=== PATIENT | male | born 1945 | race Caucasian/White ===

== ENCOUNTER 2019-07-09 11:20 | Emergency (ER) | payer MEDICARE, MEDICAID ==
[~2019-07-09] VITALS: Ht 172.7 cm; Wt 100.0 kg
[~2019-07-09 11:20] MED LIST: AMLO5TAB PO; CITA10TA9 PO; CYCL-1 PO; DEXL60CA3 PO; DONE-46 PO; LISI40TA4 PO; LORA10TA7 PO; METF-438 PO; MULT-342 PO; TRAM50TA2 PO; VALS320T2 PO
[2019-07-09 13:31] VITALS: BP 139/89
== END 2019-07-09 13:32 | disposition home or self-care (01) ==
LOC: ER 11:21
DX: H61.23 Impacted cerumen, bilateral (principal); Z88.5 Allergy status to narcotic agent; Z79.899 Other long term (current) drug therapy
CPT/HCPCS: 69209; 99283

== ENCOUNTER 2021-10-25 14:26 | Emergency (ER) | payer BC, MEDICAID ==
[~2021-10-25] VITALS: Ht 170.2 cm; Wt 100.0 kg
[~2021-10-25 14:26] MED LIST changes: -CITA10TA9 PO; +CITA10TA93 PO; +LISI40TA13 PO; -LISI40TA4 PO
[2021-10-25] MEDS: HYDROcodone/acetaminophen 5mg/325mg tablet PO ONE (14:30)
[2021-10-25 14:33] VITALS: BP 99/51
== END 2021-10-25 14:50 ==
LOC: ER 14:26
DX: G89.29 Other chronic pain (principal); M25.552 Pain in left hip; R53.1 Weakness; R62.7 Adult failure to thrive; Z98.890 Other specified postprocedural states; Z88.5 Allergy status to narcotic agent; Z79.899 Other long term (current) drug therapy
CPT/HCPCS: 99284

== ENCOUNTER 2021-12-06 21:57 | Inpatient (IN) | payer BC, MEDICAID ==
[~2021-12-06] VITALS: Ht 170.2 cm; Wt 100.0 kg
--- NOTE | 2021-12-06 22:16 | NUR ---
Nguyễn JAMES notifed by Codey UMAÑA of critical potassium level
[2021-12-06 22:36] LABS: BASOPHILS # (AUTO) 0.1 X10'3 (0-0.2); BASOPHILS % (AUTO) 0.5 % (0-1); EOSINOPHILS # (AUTO) 0.5 X10'3 (0-0.9); HEMATOCRIT 25.9 % (42.0-52.0); HEMOGLOBIN 8.2 g/dl (14.0-17.9); LYMPHOCYTES % (AUTO) 9.7 % (21-51); MEAN CORPUSCULAR HEMOGLOBIN 24.3 PG (27.0-31.0); MEAN CORPUSCULAR HGB CONC 31.6 g/dL (33.0-36.5); MEAN CORPUSCULAR VOLUME 76.9 FL (78-98); MEAN PLATELET VOLUME 7.8 FL (7.4-10.4); MONOCYTES % (AUTO) 9.9 % (2-12); NEUTROPHILS # (AUTO) 7.7 X10'3 (1.8-7.7); NEUTROPHILS % (AUTO) 74.9 % (42-75); PLATELET COUNT 397 X10'3 (140-440); RED BLOOD COUNT 3.38 X10'6 (4.70-6.10); RED CELL DISTRIBUTION WIDTH 22.3 % (11.5-14.5); WHITE BLOOD COUNT 10.3 X10'3 (4.5-11.0)
[2021-12-06 22:39] LABS: D-DIMER 0.83 MG/L FEU (0-0.50)
[2021-12-06 22:45] LABS: ALANINE AMINOTRANSFERASE 13 U/L (12-78); ALBUMIN 2.7 G/DL (3.4-5.0); ALBUMIN/GLOBULIN RATIO 0.5 (1.1-1.5); ALKALINE PHOSPHATASE 51 IU/L (46-116); ANION GAP 11 (8-16); ASPARTATE AMINO TRANSFERASE 11 U/L (10-37); BILIRUBIN,TOTAL 0.6 MG/DL (0.1-1.0); BLOOD UREA NITROGEN 108 MG/DL (7-18); BUN/CREATININE RATIO 13.8 (5.4-32.0); CALCIUM 9.9 MG/DL (8.5-10.1); CHLORIDE 104 MMOL/L (99-107); CREATININE 7.81 MG/DL (0.60-1.10); GLUCOSE 68 MG/DL (70-104); SODIUM 138 MMOL/L (135-145); TOTAL CARBON DIOXIDE 23.1 MMOL/L (24-32); TOTAL PROTEIN 7.7 G/DL (6.4-8.2); eGFR 7 ML/MIN
[2021-12-06 22:49] LABS: POTASSIUM 7.1 MMOL/L (3.5-5.1)
[2021-12-06] MEDS ORDERED: normal saline 1000ml 1,000 ML IV ONE ×2 (23:00)
[2021-12-06] MEDS ORDERED: normal saline 1000ML IV soln IVB ONE ×2 (23:00)
--- NOTE | 2021-12-06 23:16 | NUR ---
Pt given 250 mls of orange juice per verbal OK from Nguyễn JAMES for blood glucose of 68.
[2021-12-06 23:37] LABS: CREATINE KINASE 27 U/L (39-308); MAGNESIUM 1.8 MG/DL (1.5-2.4)
[2021-12-07] VITALS (17 sets, daily range): BP systolic 90–117; BP diastolic 38–51
--- NOTE | 2021-12-07 00:29 | NUR ---
IN HOME [facility] AD LITEM: JAIME PABLO (CALL HER FIRST) [phone] [place] (SON) [phone]
[2021-12-07 00:36] LABS: ALBUMIN 2.4 G/DL (3.4-5.0); ANION GAP 11 (8-16); BLOOD UREA NITROGEN 102 MG/DL (7-18); BUN/CREATININE RATIO 13.5 (5.4-32.0); CALCIUM 9.1 MG/DL (8.5-10.1); CHLORIDE 106 MMOL/L (99-107); CREATININE 7.53 MG/DL (0.60-1.10); GLUCOSE 89 MG/DL (70-104); SODIUM 139 MMOL/L (135-145); TOTAL CARBON DIOXIDE 22.2 MMOL/L (24-32); eGFR 7 ML/MIN
[2021-12-07 00:41] LABS: POTASSIUM 7.4 MMOL/L (3.5-5.1)
--- NOTE | 2021-12-07 00:43 | NUR ---
Nguyễn JAMES notified of Potassium of 7.4. stated that he would put new orders in.
[2021-12-07 00:56] LABS: PLATELET ESTIMATE NORMAL; TOTAL CELLS COUNTED 100
[2021-12-07 00:57] LABS: ANISOCYTOSIS 3+
[2021-12-07 00:58] LABS: ELLIPTOCYTES FEW; LARGE PLATELETS FEW; POLYCHROMASIA FEW
[2021-12-07] MEDS ORDERED: dextrose 50%-water 50ml dispensing syringe IV ONE ×3 (01:20→17:20)
[2021-12-07] MEDS ORDERED: insulin regular, human U-100 3ml vial - multi-dose IV ONE (01:20)
[2021-12-07] MEDS ORDERED: albuterol 2.5 MG/3 ML nebule NEB ONE (01:30)
[2021-12-07] MEDS ORDERED: sodium bicarbonate (8.4%) 1 mEq/ml syringe IV ONE ×2 (01:35→17:20)
[2021-12-07 01:51] LABS: CLARITY,URINE CLOUDY (Clear); COLOR,URINE YELLOW (Yellow); GLUCOSE, URINE 100 mg/dl (Neg); KETONES,URINE NEGATIVE (Neg); LEUKOCYTE ESTERASE ,URINE LARGE (Neg); NITRITES, URINE NEGATIVE (Neg); OCCULT BLOOD,URINE MODERATE (Neg); PROTEIN,URINE 100 mg/dl (Neg); UROBILINOGEN,URINE 0.2 E.U/dL (0.2-1.0)
--- NOTE | 2021-12-07 01:53 | NUR ---
RT at bedside
[2021-12-07] MEDS ORDERED: insulin regular, human 10 units/0.1 ml syringe IV ONE ×2 (01:55→17:20)
[2021-12-07 02:04] LABS: UA COLLECTION TYPE NON-SPECIFIED
[2021-12-07 02:06] LABS: BACTERIA,URINE 2+ /HPF (Neg); SQUAMOUS EPITHELIAL CELL,UR FEW /LPF (FEW); WBC,URINE TNTC /HPF (0-4)
[2021-12-07] MEDS ORDERED: cefTRIAXone 1g/NS 100ml IVPB 100 ML IV ONE (02:20)
--- NOTE | 2021-12-07 02:38 | NUR ---
This RN called [facility] casualty insurance claim adjuster to ask for admission orders and to notify that Nguyễn JAMES added Rocephin to patient's orders.
[2021-12-07] MEDS ORDERED: LIDOcaine 2% 10ml TOPICAL JELLY (Urojet) TP ONE (02:45)
[2021-12-07] MEDS ORDERED: sodium bicarbonate (8.4%) inj. 150 MEQ in dextrose 5%-water 1,000 ML IV SCH (02:50)
[2021-12-07] MEDS ORDERED: PATIROMER CALCIUM SORBITEX 8.4 GM POWD.PACK PO ONE (02:55)
[2021-12-07 03:37] LABS: ALBUMIN 2.4 G/DL (3.4-5.0); BLOOD UREA NITROGEN 99 MG/DL (7-18); BUN/CREATININE RATIO 13.7 (5.4-32.0); CHLORIDE 107 MMOL/L (99-107); CREATININE 7.22 MG/DL (0.60-1.10); GLUCOSE 135 MG/DL (70-104); TOTAL CARBON DIOXIDE 25.4 MMOL/L (24-32); eGFR 7 ML/MIN
[2021-12-07 03:46] LABS: ANION GAP 6 (8-16); POTASSIUM 5.9 MMOL/L (3.5-5.1); SODIUM 138 MMOL/L (135-145)
--- NOTE | 2021-12-07 06:30 | NUR ---
first contact with pt, found supine in bed, asleep. vss, corrales cath in place. awaiting bed assignment. no distress.
--- NOTE | 2021-12-07 07:02 | NUR ---
telephone report to elma ocampo.
[2021-12-07] MEDS: sodium chloride 0.45% 1,000 ML IV SCH ×2 (07:45→18:56)
[2021-12-07] MEDS: heparin, porcine 5000 units/ml vial SQ SCH ×2 (09:05→20:46)
[2021-12-07 14:56] LABS: URINE AMPHETAMINE SCREEN NEGATIVE (Neg); URINE BARBITUATE SCREEN NEGATIVE (Neg); URINE BENZODIAZEPINES SCREEN NEGATIVE (Neg); URINE COCAINE SCREEN NEGATIVE (Neg); URINE METHADONE SCREEN NEGATIVE (Neg); URINE OPIATE SCREEN NEGATIVE (Neg)
[2021-12-07 15:05] LABS: URINE CANNABINOID SCREEN NEGATIVE (Neg); URINE PHENCYCLIDINE SCREEN NEGATIVE (Neg)
[2021-12-07] MEDS ORDERED: ACET-3080 PO (15:28)
[2021-12-07] MEDS ORDERED: LANTUS SQ (15:28)
[2021-12-07] MEDS ORDERED: IPRA3AMP31 IH (15:28)
[2021-12-07] MEDS ORDERED: GABA300C PO (15:28)
[2021-12-07] MEDS ORDERED: INSU100V43 SQ (15:28)
[2021-12-07] MEDS ORDERED: AMLO10TA PO (15:28)
[2021-12-07] MEDS ORDERED: PREG100C PO (15:28)
[2021-12-07] MEDS ORDERED: OMEP20CA16 PO (15:28)
[2021-12-07] MEDS ORDERED: DONE10TA7 PO (15:28)
[2021-12-07] MEDS ORDERED: FLO0.4C PO (15:28)
[2021-12-07] MEDS ORDERED: ASPI-101 PO (15:28)
[2021-12-07] MEDS ORDERED: GLIM4TAB7 PO (15:28)
[2021-12-07] MEDS ORDERED: INSU100I71 SQ (15:28)
[2021-12-07] MEDS ORDERED: OXYB5TAB16 PO (15:28)
[2021-12-07] MEDS ORDERED: ATOR40TA PO (15:28)
[2021-12-07] MEDS ORDERED: DOCU100C40 PO (15:28)
[2021-12-07] MEDS ORDERED: LIDO700A32 TOP (15:28)
[2021-12-07] MEDS ORDERED: FERR325T28 PO (15:28)
[2021-12-07] MEDS ORDERED: LOP25T PO (15:28)
[2021-12-07] MEDS ORDERED: SITA100T15 PO (15:28)
[2021-12-07] MEDS ORDERED: DAPA10TA PO (15:28)
[2021-12-07] MEDS ORDERED: LOSA100T57 PO (15:28)
[2021-12-07] MEDS ORDERED: HYDR-3965 PO (15:28)
[2021-12-07] MEDS ORDERED: TRAZ150T78 PO (15:28)
[2021-12-07] MEDS ORDERED: INSU100I8 SQ (15:28)
[2021-12-07] MEDS ORDERED: ALOG6.25 PO (15:28)
[2021-12-07] MEDS ORDERED: FENO145T25 PO (15:29)
[2021-12-07] MEDS ORDERED: NORepinephrine 8mg/ 250ml NS 250 ML IV ONE (16:01)
[2021-12-07 16:41] LABS: ALBUMIN 2.3 G/DL (3.4-5.0); ANION GAP 7 (8-16); BLOOD UREA NITROGEN 81 MG/DL (7-18); BUN/CREATININE RATIO 12.9 (5.4-32.0); CALCIUM 8.9 MG/DL (8.5-10.1); CHLORIDE 107 MMOL/L (99-107); CREATININE 6.29 MG/DL (0.60-1.10); GLUCOSE 94 MG/DL (70-104); MAGNESIUM 1.5 MG/DL (1.5-2.4); SODIUM 139 MMOL/L (135-145); TOTAL CARBON DIOXIDE 24.9 MMOL/L (24-32); eGFR 9 ML/MIN
--- NOTE | 2021-12-07 18:07 | NUR ---
pt having difficulty eating by him self. hand very shaky will need help with feeding. Food cut up for patient and is trying very hard to eat. RN notified
[2021-12-07] MEDS: NORepinephrine 8mg/ 250ml NS 250 ML IV SCH (19:08)
[2021-12-07] MEDS ORDERED: sodium bicarbonate 650mg tablet PO SCH (20:00)
[2021-12-07] MEDS: SODIUM ZIRCONIUM CYCLOSILICATE 10 GM POWD.PACK PO SCH (20:46)
[2021-12-07] MEDS: tamsulosin 0.4mg capsule PO SCH (20:46)
[2021-12-08] VITALS (18 sets, daily range): BP systolic 84–137; BP diastolic 36–69
[2021-12-08] MEDS: sodium chloride 0.45% 1,000 ML IV SCH ×3 (00:36→18:38)
[2021-12-08 03:13] LABS: BASOPHILS # (AUTO) 0.1 X10'3 (0-0.2); BASOPHILS % (AUTO) 0.8 % (0-1); EOSINOPHILS # (AUTO) 0.5 X10'3 (0-0.9); EOSINOPHILS % (AUTO) 7.2 % (0-6); HEMATOCRIT 23.6 % (42.0-52.0); HEMOGLOBIN 7.5 g/dl (14.0-17.9); LYMPHOCYTES % (AUTO) 13.8 % (21-51); MEAN CORPUSCULAR HEMOGLOBIN 24.7 PG (27.0-31.0); MEAN CORPUSCULAR HGB CONC 31.8 g/dL (33.0-36.5); MEAN CORPUSCULAR VOLUME 77.8 FL (78-98); MEAN PLATELET VOLUME 7.7 FL (7.4-10.4); MONOCYTES # (AUTO) 0.5 X10'3 (0-0.9); MONOCYTES % (AUTO) 7.2 % (2-12); NEUTROPHILS # (AUTO) 5.4 X10'3 (1.8-7.7); PLATELET COUNT 313 X10'3 (140-440); RED BLOOD COUNT 3.04 X10'6 (4.70-6.10); RED CELL DISTRIBUTION WIDTH 22.4 % (11.5-14.5); WHITE BLOOD COUNT 7.6 X10'3 (4.5-11.0)
[2021-12-08 03:20] LABS: APTT 30 SECONDS (22-32)
[2021-12-08 03:24] LABS: ALBUMIN 2.2 G/DL (3.4-5.0); ANION GAP 6 (8-16); BLOOD UREA NITROGEN 73 MG/DL (7-18); BUN/CREATININE RATIO 12.5 (5.4-32.0); CALCIUM 8.8 MG/DL (8.5-10.1); CHLORIDE 108 MMOL/L (99-107); CREATININE 5.83 MG/DL (0.60-1.10); GLUCOSE 89 MG/DL (70-104); POTASSIUM 5.4 MMOL/L (3.5-5.1); SODIUM 141 MMOL/L (135-145); TOTAL CARBON DIOXIDE 26.6 MMOL/L (24-32); eGFR 10 ML/MIN
[2021-12-08 04:31] LABS: ANISOCYTOSIS 3+; ELLIPTOCYTES FEW; PLATELET ESTIMATE NORMAL
[2021-12-08] MEDS: normal saline 1000ml 1,000 ML IV SCH ×3 (05:07→06:35)
[2021-12-08] MEDS: NORepinephrine 8mg/ 250ml NS 250 ML IV SCH (05:50)
[2021-12-08] MEDS ORDERED: DEXTROSE 15 GM of carb/4 tabs (each vial/BOTTLE has 4 tablets) PO PRN ×4 (07:45→11:55)
[2021-12-08] MEDS ORDERED: dextrose 50%-water 50ml dispensing syringe IV PRN ×4 (07:45→11:55)
[2021-12-08] MEDS: cefTRIAXone 1g/NS 100ml IVPB IV SCH (07:56)
[2021-12-08] MEDS: SODIUM ZIRCONIUM CYCLOSILICATE 10 GM POWD.PACK PO SCH ×2 (07:56→12:20)
[2021-12-08] MEDS: heparin, porcine 5000 units/ml vial SQ SCH ×2 (07:57→20:00)
[2021-12-08] MEDS ORDERED: ipratropium/albuterol 3ml nebule IH PRN (11:10)
[2021-12-08] MEDS ORDERED: oxybutynin 5mg tablet PO PRN (11:10)
[2021-12-08] MEDS ORDERED: fluconazole 150mg tablet PO ONE (11:45)
[2021-12-08] MEDS ORDERED: glucagon, human recombinant 1mg kit SUBCUT PRN (11:55)
[2021-12-08] MEDS ORDERED: MESSAGE TO PHARMACY PO ONE (11:55)
--- NOTE | 2021-12-08 12:09 | NUR ---
Calorie Count Consult: RD d/w RN at rounds supposed to be DM Consult given pt A1C 8.5% and hx T2DM NOT calorie count consult; dietary notified. Pt PO ~70% initial renal diet meals w/ 100% breakfast this AM per RN though having persistent low AM Glu 54mg/dl this AM s/p D50 per EMR. Noted night RN charted pt difficulty eating requires assistance/chopping foods given shaking hands. Dietary notified to chop meats given good PO trends. Given pt persistent low AM Glu w/ adequate meal intake not on carb controlled restriction DM ed deferred at this time. Addendum: 12/08/21 at [address] Amended: Links added.
[2021-12-08] MEDS: donepezil 5mg tablet PO SCH (12:19)
[2021-12-08 15:56] LABS: ALBUMIN 2.1 G/DL (3.4-5.0); ANION GAP 9 (8-16); BLOOD UREA NITROGEN 61 MG/DL (7-18); BUN/CREATININE RATIO 12.1 (5.4-32.0); CALCIUM 8.7 MG/DL (8.5-10.1); CHLORIDE 108 MMOL/L (99-107); CREATININE 5.05 MG/DL (0.60-1.10); GLUCOSE 117 MG/DL (70-104); MAGNESIUM 1.4 MG/DL (1.5-2.4); SODIUM 141 MMOL/L (135-145); TOTAL CARBON DIOXIDE 24.3 MMOL/L (24-32); eGFR 11 ML/MIN
[2021-12-08 15:57] LABS: POTASSIUM 4.6 MMOL/L (3.5-5.1)
--- NOTE | 2021-12-08 17:34 | NUR ---
Report called to receiving RN, all questions/concerns answered prior to transfer. All pt belongings accounted for prior to transfer.
--- NOTE | 2021-12-08 17:59 | NUR ---
Patient just got here from CICU not too long ago. Patient alert, oriented x 4. Patient has a corrales catheter that draining red/bloody urine. Per ICU nurse, the doctor already aware of the hematuria.
[2021-12-08] MEDS: docusate sod 100mg capsule PO SCH (20:35)
[2021-12-08] MEDS: tamsulosin 0.4mg capsule PO SCH (20:36)
[2021-12-08] MEDS: traZODone 150mg tablet PO SCH (20:36)
[2021-12-08] MEDS: metoprolol tartrate 12.5mg (1/2 tablet) PO SCH (20:37)
[2021-12-08] MEDS: insulin glargine (Lantus) pen - multi-dose SQ SCH (21:00)
--- NOTE | 2021-12-08 21:10 | NUR ---
Pt not covered for blood sugar of 206 as he received a regular/renal diet, and am blood glucose 54. Addendum: 12/08/21 at 2113 by Tracey Oneill RN Amended: Links added.
--- NOTE | 2021-12-08 21:30 | NUR ---
Pt with hematuria in f/c, heparin held at this time will pass on to aubrey barragan nurse taking pt. Addendum: 12/09/21 at 0332 by Tracey Oneill RN Amended: Links added.
--- NOTE | 2021-12-08 22:08 | NUR ---
Report given to laurel Liu RN. Addendum: 12/08/21 at 2251 by Tracey Oneill RN Amended: Links added.
--- NOTE | 2021-12-08 22:10 | NUR ---
Patient in room ORTHO 4009. I have received report from MUKESH UMAÑA and had the opportunity to ask questions and assume patient care.
[2021-12-09] MEDS: sodium chloride 0.45% 1,000 ML IV SCH ×3 (00:46→15:45)
[2021-12-09] MEDS: acetaminophen 325mg tablet PO PRN ×2 (00:46→11:50)
[2021-12-09 06:00] VITALS: BP 125/49
--- NOTE | 2021-12-09 06:40 | NUR ---
Problems reprioritized. Patient report given, questions answered & plan of care reviewed with LONA UMAÑA.
--- NOTE | 2021-12-09 06:40 | NUR ---
PATIENT HAVING CHEERY URINE AND NOT SURE IF PATIENT IS TAGING ON THE FC.
[2021-12-09] MEDS ORDERED: gabapentin 300mg capsule PO SCH (08:00)
[2021-12-09] MEDS ORDERED: pantoprazole 40mg Tablet.DR PO SCH (08:00)
[2021-12-09] MEDS: heparin, porcine 5000 units/ml vial SQ SCH (08:00)
[2021-12-09] MEDS ORDERED: tamsulosin 0.4mg capsule PO SCH (08:00)
[2021-12-09] MEDS ORDERED: aspirin 325mg tablet PO SCH (08:00)
[2021-12-09] MEDS: fenofibrate 145mg tablet PO SCH (08:45)
[2021-12-09] MEDS: cefTRIAXone 1g/NS 100ml IVPB IV SCH (08:45)
[2021-12-09] MEDS: amLODIPine 5mg tablet PO SCH (08:46)
[2021-12-09] MEDS: docusate sod 100mg capsule PO SCH ×2 (08:46→20:52)
[2021-12-09] MEDS: donepezil 5mg tablet PO SCH (08:46)
[2021-12-09] MEDS: ferrous sulfate 325mg tablet PO SCH (08:46)
[2021-12-09] MEDS: metoprolol tartrate 12.5mg (1/2 tablet) PO SCH ×2 (08:47→20:52)
[2021-12-09] MEDS: atorvastatin 20mg tablet PO SCH (08:50)
[2021-12-09] MEDS: pantoprazole 40mg Tablet.DR PO SCH (08:50)
[2021-12-09] MEDS: insulin Lispro (HumaLOG) vial - multi-dose SQ SCH ×2 (09:41→15:30)
[2021-12-09 10:00] VITALS: BP 117/47
[2021-12-09] MEDS ORDERED: fluconazole 100mg tablet PO ONE (10:40)
[2021-12-09 12:27] LABS: BASOPHILS # (AUTO) 0.1 X10'3 (0-0.2); BASOPHILS % (AUTO) 0.4 % (0-1); EOSINOPHILS # (AUTO) 0.4 X10'3 (0-0.9); HEMATOCRIT 30.6 % (42.0-52.0); HEMOGLOBIN 9.4 g/dl (14.0-17.9); LYMPHOCYTES # (AUTO) 0.6 X10'3 (1.1-4.8); LYMPHOCYTES % (AUTO) 3.3 % (21-51); MEAN CORPUSCULAR HEMOGLOBIN 23.7 PG (27.0-31.0); MEAN CORPUSCULAR HGB CONC 30.6 g/dL (33.0-36.5); MEAN CORPUSCULAR VOLUME 77.3 FL (78-98); MEAN PLATELET VOLUME 7.9 FL (7.4-10.4); MONOCYTES # (AUTO) 0.9 X10'3 (0-0.9); MONOCYTES % (AUTO) 4.9 % (2-12); NEUTROPHILS # (AUTO) 16.6 X10'3 (1.8-7.7); NEUTROPHILS % (AUTO) 89.4 % (42-75); PLATELET COUNT 361 X10'3 (140-440); RED BLOOD COUNT 3.96 X10'6 (4.70-6.10); RED CELL DISTRIBUTION WIDTH 22.6 % (11.5-14.5); WHITE BLOOD COUNT 18.6 X10'3 (4.5-11.0)
[2021-12-09 12:50] LABS: ALANINE AMINOTRANSFERASE 36 U/L (12-78); ALBUMIN 2.8 G/DL (3.4-5.0); ALBUMIN/GLOBULIN RATIO 0.6 (1.1-1.5); ALKALINE PHOSPHATASE 69 IU/L (46-116); ANION GAP 11 (8-16); ASPARTATE AMINO TRANSFERASE 47 U/L (10-37); BILIRUBIN,TOTAL 0.3 MG/DL (0.1-1.0); BLOOD UREA NITROGEN 55 MG/DL (7-18); BUN/CREATININE RATIO 12.6 (5.4-32.0); CALCIUM 9.5 MG/DL (8.5-10.1); CHLORIDE 105 MMOL/L (99-107); CREATININE 4.37 MG/DL (0.60-1.10); GLUCOSE 150 MG/DL (70-104); POTASSIUM 4.4 MMOL/L (3.5-5.1); SODIUM 140 MMOL/L (135-145); TOTAL CARBON DIOXIDE 23.7 MMOL/L (24-32); TOTAL PROTEIN 7.8 G/DL (6.4-8.2); eGFR 13 ML/MIN
[2021-12-09] MEDS: oxybutynin 5mg tablet PO SCH ×2 (13:00→20:53)
[2021-12-09] MEDS: carbidopa/levodopa 10/100mg tab PO SCH ×2 (16:25→23:58)
[2021-12-09 18:00] VITALS: BP 107/36
--- NOTE | 2021-12-09 18:39 | NUR ---
Patient in room ORTHO 4009. I have received report from LEEROY Renee and had the opportunity to ask questions and assume patient care.
--- NOTE | 2021-12-09 18:49 | NUR ---
Problems reprioritized. Patient report given, questions answered & plan of care reviewed with Grecia UMAÑA.
[2021-12-09 20:00] VITALS: BP 106/39
[2021-12-09] MEDS: traZODone 150mg tablet PO SCH (20:53)
[2021-12-09] MEDS: tamsulosin 0.4mg capsule PO SCH (20:53)
[2021-12-09] MEDS: insulin glargine (Lantus) pen - multi-dose SQ SCH (21:00)
[2021-12-09 22:00] VITALS: BP 106/51
[2021-12-10] MEDS: sodium chloride 0.45% 1,000 ML IV SCH ×3 (01:09→16:32)
--- NOTE | 2021-12-10 03:59 | NUR ---
pt has fc that was draining bloody urine. pt was found to be leaking around fc. orders received to irrigate for clots. this was done. numerous clots flushed out. fc now draining pink urine. no more leaking around fc. pt tolerated procedure well.
[2021-12-10 06:00] VITALS: BP 99/49
[2021-12-10 06:09] LABS: BASOPHILS # (AUTO) 0.1 X10'3 (0-0.2); BASOPHILS % (AUTO) 0.7 % (0-1); EOSINOPHILS % (AUTO) 0.4 % (0-6); HEMATOCRIT 22.8 % (42.0-52.0); HEMOGLOBIN 7.3 g/dl (14.0-17.9); LYMPHOCYTES # (AUTO) 0.7 X10'3 (1.1-4.8); LYMPHOCYTES % (AUTO) 6.9 % (21-51); MEAN CORPUSCULAR HEMOGLOBIN 24.8 PG (27.0-31.0); MEAN CORPUSCULAR HGB CONC 32.1 g/dL (33.0-36.5); MEAN CORPUSCULAR VOLUME 77.4 FL (78-98); MEAN PLATELET VOLUME 7.7 FL (7.4-10.4); MONOCYTES # (AUTO) 0.6 X10'3 (0-0.9); MONOCYTES % (AUTO) 5.8 % (2-12); NEUTROPHILS # (AUTO) 8.3 X10'3 (1.8-7.7); NEUTROPHILS % (AUTO) 86.2 % (42-75); PLATELET COUNT 246 X10'3 (140-440); RED BLOOD COUNT 2.95 X10'6 (4.70-6.10); RED CELL DISTRIBUTION WIDTH 22.6 % (11.5-14.5); WHITE BLOOD COUNT 9.6 X10'3 (4.5-11.0)
[2021-12-10 06:22] LABS: ALANINE AMINOTRANSFERASE 7 U/L (12-78); ALBUMIN 2.2 G/DL (3.4-5.0); ALBUMIN/GLOBULIN RATIO 0.6 (1.1-1.5); ALKALINE PHOSPHATASE 50 IU/L (46-116); ANION GAP 15 (8-16); ASPARTATE AMINO TRANSFERASE 17 U/L (10-37); BILIRUBIN,TOTAL 0.4 MG/DL (0.1-1.0); BLOOD UREA NITROGEN 50 MG/DL (7-18); BUN/CREATININE RATIO 11.7 (5.4-32.0); CALCIUM 8.4 MG/DL (8.5-10.1); CHLORIDE 106 MMOL/L (99-107); CREATININE 4.27 MG/DL (0.60-1.10); GLUCOSE 110 MG/DL (70-104); POTASSIUM 3.7 MMOL/L (3.5-5.1); SODIUM 140 MMOL/L (135-145); TOTAL CARBON DIOXIDE 19.2 MMOL/L (24-32); TOTAL PROTEIN 6.2 G/DL (6.4-8.2); eGFR 14 ML/MIN
--- NOTE | 2021-12-10 06:45 | NUR ---
Problems reprioritized. Patient report given, questions answered & plan of care reviewed with LEEROY Sharma.
[2021-12-10] MEDS: pantoprazole 40mg Tablet.DR PO SCH (07:30)
[2021-12-10 08:00] LABS: ANISOCYTOSIS 3+; ELLIPTOCYTES FEW; HYPOCHROMASIA 1+; MICROCYTOSIS 1+; PLATELET ESTIMATE NORMAL; POLYCHROMASIA FEW; STOMATOCYTES FEW; TEAR DROP CELLS FEW
[2021-12-10] MEDS: fluconazole 100mg tablet PO SCH (08:00)
[2021-12-10] MEDS: cefTRIAXone 1g/NS 100ml IVPB IV SCH (08:56)
[2021-12-10] MEDS: fenofibrate 145mg tablet PO SCH (08:58)
[2021-12-10] MEDS: carbidopa/levodopa 10/100mg tab PO SCH ×2 (08:59→16:30)
[2021-12-10] MEDS: docusate sod 100mg capsule PO SCH ×2 (08:59→20:58)
[2021-12-10] MEDS: gabapentin 100mg capsule PO SCH (08:59)
[2021-12-10] MEDS: oxybutynin 5mg tablet PO SCH ×3 (08:59→20:57)
[2021-12-10] MEDS: amLODIPine 5mg tablet PO SCH (08:59)
[2021-12-10] MEDS: atorvastatin 20mg tablet PO SCH (09:00)
[2021-12-10] MEDS: ferrous sulfate 325mg tablet PO SCH (09:00)
[2021-12-10] MEDS: donepezil 5mg tablet PO SCH (09:00)
[2021-12-10] MEDS: linagliptin 5mg tablet PO SCH (09:01)
[2021-12-10] MEDS: acetaminophen 325mg tablet PO PRN (09:06)
[2021-12-10] MEDS: metoprolol tartrate 12.5mg (1/2 tablet) PO SCH ×2 (09:06→20:56)
[2021-12-10 10:00] VITALS: BP 97/42
--- NOTE | 2021-12-10 12:55 | NUR ---
Called pharmacy. Pharmacist not available. Asked for return phone call.
[2021-12-10] MEDS ORDERED: fluconazole 100mg tablet PO ONE (13:15)
[2021-12-10] MEDS: HYDROcodone/acetaminophen 5mg/325mg tablet PO PRN ×2 (13:18→20:57)
[2021-12-10 18:00] VITALS: BP 107/45
--- NOTE | 2021-12-10 18:30 | NUR ---
Gave report to May UMAÑA.
[2021-12-10] MEDS: tamsulosin 0.4mg capsule PO SCH (20:57)
[2021-12-10] MEDS: traZODone 150mg tablet PO SCH (20:58)
[2021-12-10] MEDS: insulin glargine (Lantus) pen - multi-dose SQ SCH (21:12)
[2021-12-10 22:00] VITALS: BP 106/46
[2021-12-11] MEDS: carbidopa/levodopa 10/100mg tab PO SCH ×3 (00:18→16:59)
[2021-12-11] MEDS: sodium chloride 0.45% 1,000 ML IV SCH ×4 (00:27→18:50)
[2021-12-11] MEDS: HYDROcodone/acetaminophen 5mg/325mg tablet PO PRN ×2 (05:14→21:04)
--- NOTE | 2021-12-11 06:32 | NUR ---
Problems reprioritized. Patient report given, questions answered & plan of care reviewed with elma Davalos.
--- NOTE | 2021-12-11 06:36 | NUR ---
Patient in room ORTHO 4011. I have received report from May UMAÑA and had the opportunity to ask questions and assume patient care.
[2021-12-11 07:04] VITALS: BP 101/49
[2021-12-11] MEDS: metoprolol tartrate 12.5mg (1/2 tablet) PO SCH ×2 (08:00→21:04)
[2021-12-11] MEDS ORDERED: fluconazole 100mg tablet PO SCH (08:00)
[2021-12-11] MEDS: amLODIPine 5mg tablet PO SCH (08:00)
[2021-12-11] MEDS: docusate sod 100mg capsule PO SCH (08:05)
[2021-12-11] MEDS: ferrous sulfate 325mg tablet PO SCH (08:06)
[2021-12-11] MEDS: donepezil 5mg tablet PO SCH (08:06)
[2021-12-11] MEDS: oxybutynin 5mg tablet PO SCH (08:06)
[2021-12-11] MEDS: pantoprazole 40mg Tablet.DR PO SCH (08:06)
[2021-12-11] MEDS: gabapentin 100mg capsule PO SCH (08:07)
[2021-12-11] MEDS: atorvastatin 20mg tablet PO SCH (08:07)
[2021-12-11] MEDS: fenofibrate 145mg tablet PO SCH (08:07)
[2021-12-11] MEDS: linagliptin 5mg tablet PO SCH (08:08)
[2021-12-11] MEDS: fluconazole 100mg tablet PO SCH (08:08)
[2021-12-11] MEDS: cefTRIAXone 1g/NS 100ml IVPB IV SCH (08:09)
[2021-12-11 10:00] VITALS: BP 115/58
[2021-12-11] MEDS: insulin Lispro (HumaLOG) vial - multi-dose SQ SCH ×3 (10:08→18:44)
--- NOTE | 2021-12-11 10:52 | NUR ---
Initial: Pt admitted w/ UTI and RADHA per EMR. Currently on Carb control/Renal/Mech soft diet w/ avg 61% x 9 meals partially meeting needs. Recommend removal of Renal diet as not currently indicated w/ only RADHA. Also recommend Glucerna TID to assist w/ meeting needs. LBM 12/09 receiving routine bowel care. Will continue to monitor. Recs: 1. Continue Carb control/Mech soft diet; remove Renal as not indicated 2. Glucerna TID; pending MD verification 3. Bowel care per rx 4. Scaled wts this admit Addendum: 12/11/21 at [address] Amended: Links added.
[2021-12-11 14:00] VITALS: BP 101/47
[2021-12-11 14:17] LABS: BASOPHILS # (AUTO) 0.1 X10'3 (0-0.2); EOSINOPHILS # (AUTO) 0.4 X10'3 (0-0.9); EOSINOPHILS % (AUTO) 6.2 % (0-6); HEMATOCRIT 23.4 % (42.0-52.0); HEMOGLOBIN 7.2 g/dl (14.0-17.9); LYMPHOCYTES # (AUTO) 0.8 X10'3 (1.1-4.8); LYMPHOCYTES % (AUTO) 13.8 % (21-51); MEAN CORPUSCULAR HEMOGLOBIN 23.9 PG (27.0-31.0); MEAN CORPUSCULAR VOLUME 77.1 FL (78-98); MEAN PLATELET VOLUME 7.7 FL (7.4-10.4); MONOCYTES # (AUTO) 0.6 X10'3 (0-0.9); MONOCYTES % (AUTO) 9.8 % (2-12); NEUTROPHILS # (AUTO) 4.2 X10'3 (1.8-7.7); NEUTROPHILS % (AUTO) 69.2 % (42-75); PLATELET COUNT 236 X10'3 (140-440); RED BLOOD COUNT 3.03 X10'6 (4.70-6.10); RED CELL DISTRIBUTION WIDTH 22.2 % (11.5-14.5); WHITE BLOOD COUNT 6.1 X10'3 (4.5-11.0)
[2021-12-11 14:32] LABS: ALANINE AMINOTRANSFERASE 11 U/L (12-78); ALBUMIN 2.2 G/DL (3.4-5.0); ALBUMIN/GLOBULIN RATIO 0.5 (1.1-1.5); ALKALINE PHOSPHATASE 64 IU/L (46-116); ANION GAP 12 (8-16); ASPARTATE AMINO TRANSFERASE 17 U/L (10-37); BILIRUBIN,TOTAL 0.2 MG/DL (0.1-1.0); BLOOD UREA NITROGEN 37 MG/DL (7-18); BUN/CREATININE RATIO 10.7 (5.4-32.0); CALCIUM 8.4 MG/DL (8.5-10.1); CHLORIDE 105 MMOL/L (99-107); CREATININE 3.47 MG/DL (0.60-1.10); GLUCOSE 123 MG/DL (70-104); POTASSIUM 3.6 MMOL/L (3.5-5.1); SODIUM 139 MMOL/L (135-145); TOTAL CARBON DIOXIDE 22.2 MMOL/L (24-32); TOTAL PROTEIN 6.4 G/DL (6.4-8.2); eGFR 17 ML/MIN
[2021-12-11 18:00] VITALS: BP 117/51
--- NOTE | 2021-12-11 18:34 | NUR ---
Problems reprioritized. Patient report given, questions answered & plan of care reviewed with May UMAÑA.
[2021-12-11] MEDS: traZODone 150mg tablet PO SCH (21:00)
[2021-12-11] MEDS: tamsulosin 0.4mg capsule PO SCH (21:00)
[2021-12-11] MEDS: insulin glargine (Lantus) pen - multi-dose SQ SCH (21:00)
[2021-12-11 22:00] VITALS: BP 116/69
[2021-12-12] MEDS: carbidopa/levodopa 10/100mg tab PO SCH ×4 (00:20→21:02)
[2021-12-12] MEDS: sodium chloride 0.45% 1,000 ML IV SCH ×2 (03:21→15:40)
[2021-12-12] MEDS: HYDROcodone/acetaminophen 5mg/325mg tablet PO PRN ×3 (05:09→21:22)
[2021-12-12 06:00] VITALS: BP 133/55
--- NOTE | 2021-12-12 06:14 | NUR ---
Problems reprioritized. Patient report given, questions answered & plan of care reviewed with LEEROY SAN.
--- NOTE | 2021-12-12 06:15 | NUR ---
received report from elma miller
[2021-12-12] MEDS: cefTRIAXone 1g/NS 100ml IVPB IV SCH (07:15)
[2021-12-12] MEDS: pantoprazole 40mg Tablet.DR PO SCH (07:15)
[2021-12-12] MEDS: fluconazole 100mg tablet PO SCH (07:17)
[2021-12-12] MEDS: linagliptin 5mg tablet PO SCH (07:18)
[2021-12-12] MEDS: metoprolol tartrate 12.5mg (1/2 tablet) PO SCH ×2 (07:19→21:01)
[2021-12-12] MEDS: fenofibrate 145mg tablet PO SCH (07:20)
[2021-12-12] MEDS: atorvastatin 20mg tablet PO SCH (07:21)
[2021-12-12] MEDS: gabapentin 100mg capsule PO SCH (07:21)
[2021-12-12] MEDS: ferrous sulfate 325mg tablet PO SCH (07:22)
[2021-12-12] MEDS: amLODIPine 5mg tablet PO SCH (07:23)
--- NOTE | 2021-12-12 08:00 | NUR ---
PT BG IS 102, PT IS NOT A CANDIDATE FOR INSULIN AT THIS TIME, CONTINUE TO MONITOR
[2021-12-12] MEDS ORDERED: ondansetron 4mg rapidly disintigrating tab PO PRN (08:45)
[2021-12-12 09:27] LABS: BASOPHILS % (AUTO) 0.8 % (0-1); EOSINOPHILS # (AUTO) 0.3 X10'3 (0-0.9); EOSINOPHILS % (AUTO) 5.5 % (0-6); HEMATOCRIT 25.7 % (42.0-52.0); HEMOGLOBIN 8.3 g/dl (14.0-17.9); LYMPHOCYTES # (AUTO) 0.9 X10'3 (1.1-4.8); MEAN CORPUSCULAR HEMOGLOBIN 25.1 PG (27.0-31.0); MEAN CORPUSCULAR HGB CONC 32.2 g/dL (33.0-36.5); MEAN CORPUSCULAR VOLUME 78.1 FL (78-98); MEAN PLATELET VOLUME 7.7 FL (7.4-10.4); MONOCYTES # (AUTO) 0.5 X10'3 (0-0.9); MONOCYTES % (AUTO) 7.7 % (2-12); NEUTROPHILS # (AUTO) 4.4 X10'3 (1.8-7.7); PLATELET COUNT 259 X10'3 (140-440); RED BLOOD COUNT 3.29 X10'6 (4.70-6.10); RED CELL DISTRIBUTION WIDTH 22.8 % (11.5-14.5); WHITE BLOOD COUNT 6.1 X10'3 (4.5-11.0)
[2021-12-12 09:40] LABS: ALANINE AMINOTRANSFERASE 7 U/L (12-78); ALBUMIN 2.4 G/DL (3.4-5.0); ALBUMIN/GLOBULIN RATIO 0.5 (1.1-1.5); ALKALINE PHOSPHATASE 81 IU/L (46-116); ANION GAP 10 (8-16); ASPARTATE AMINO TRANSFERASE 20 U/L (10-37); BILIRUBIN,TOTAL 0.2 MG/DL (0.1-1.0); BLOOD UREA NITROGEN 33 MG/DL (7-18); BUN/CREATININE RATIO 10.3 (5.4-32.0); CALCIUM 9.2 MG/DL (8.5-10.1); CHLORIDE 105 MMOL/L (99-107); CREATININE 3.21 MG/DL (0.60-1.10); GLUCOSE 121 MG/DL (70-104); POTASSIUM 3.6 MMOL/L (3.5-5.1); SODIUM 138 MMOL/L (135-145); TOTAL CARBON DIOXIDE 22.8 MMOL/L (24-32); TOTAL PROTEIN 7.1 G/DL (6.4-8.2); eGFR 19 ML/MIN
[2021-12-12 09:46] LABS: PLATELET ESTIMATE NORMAL
[2021-12-12 09:47] LABS: ANISOCYTOSIS 3+; ELLIPTOCYTES 2+; HYPOCHROMASIA 1+; MICROCYTOSIS 1+
[2021-12-12 10:00] VITALS: BP 119/53
[2021-12-12] MEDS: insulin Lispro (HumaLOG) vial - multi-dose SQ SCH (13:30)
[2021-12-12 14:00] VITALS: BP 110/46
--- NOTE | 2021-12-12 16:27 | NUR ---
Pt walked 50 feet then rested, pt then walked 100 feet back to room. Gait belt was used and pt was a 1 person assist.
[2021-12-12 18:00] VITALS: BP 132/58
--- NOTE | 2021-12-12 18:13 | NUR ---
gave report to elma cook
[2021-12-12] MEDS: tamsulosin 0.4mg capsule PO SCH (21:03)
[2021-12-12] MEDS: traZODone 150mg tablet PO SCH (21:03)
[2021-12-12] MEDS: insulin glargine (Lantus) pen - multi-dose SQ SCH (21:12)
[2021-12-12 22:00] VITALS: BP 117/50
[2021-12-13] MEDS: sodium chloride 0.45% 1,000 ML IV SCH ×3 (00:44→20:58)
--- NOTE | 2021-12-13 06:41 | NUR ---
Patient in room ORTHO 4011. I have received report from joyce wills and had the opportunity to ask questions and assume patient care.
[2021-12-13 07:21] VITALS: BP 110/51
[2021-12-13] MEDS: pantoprazole 40mg Tablet.DR PO SCH (09:09)
[2021-12-13] MEDS: gabapentin 100mg capsule PO SCH (09:09)
[2021-12-13] MEDS: carbidopa/levodopa 10/100mg tab PO SCH ×2 (09:09→20:57)
[2021-12-13] MEDS: ferrous sulfate 325mg tablet PO SCH (09:09)
[2021-12-13] MEDS: metoprolol tartrate 12.5mg (1/2 tablet) PO SCH ×2 (09:09→20:57)
[2021-12-13] MEDS: atorvastatin 20mg tablet PO SCH (09:10)
[2021-12-13] MEDS: fluconazole 100mg tablet PO SCH (09:10)
[2021-12-13] MEDS: amLODIPine 5mg tablet PO SCH (09:10)
[2021-12-13] MEDS: fenofibrate 145mg tablet PO SCH (09:10)
[2021-12-13] MEDS: linagliptin 5mg tablet PO SCH (09:10)
[2021-12-13 12:56] VITALS: BP 115/54
[2021-12-13 14:34] VITALS: BP 116/54
[2021-12-13] MEDS ORDERED: gabapentin 300mg capsule PO SCH (15:32)
[2021-12-13 18:00] VITALS: BP 103/48
[2021-12-13 18:18] LABS: BASOPHILS # (AUTO) 0.1 X10'3 (0-0.2); BASOPHILS % (AUTO) 0.9 % (0-1); EOSINOPHILS # (AUTO) 0.3 X10'3 (0-0.9); EOSINOPHILS % (AUTO) 4.3 % (0-6); HEMATOCRIT 27.6 % (42.0-52.0); HEMOGLOBIN 8.7 g/dl (14.0-17.9); LYMPHOCYTES # (AUTO) 0.9 X10'3 (1.1-4.8); LYMPHOCYTES % (AUTO) 13.8 % (21-51); MEAN CORPUSCULAR HEMOGLOBIN 24.5 PG (27.0-31.0); MEAN CORPUSCULAR HGB CONC 31.6 g/dL (33.0-36.5); MEAN CORPUSCULAR VOLUME 77.6 FL (78-98); MEAN PLATELET VOLUME 7.6 FL (7.4-10.4); MONOCYTES # (AUTO) 0.4 X10'3 (0-0.9); MONOCYTES % (AUTO) 5.9 % (2-12); NEUTROPHILS % (AUTO) 75.1 % (42-75); PLATELET COUNT 334 X10'3 (140-440); RED BLOOD COUNT 3.56 X10'6 (4.70-6.10); RED CELL DISTRIBUTION WIDTH 22.6 % (11.5-14.5); WHITE BLOOD COUNT 6.7 X10'3 (4.5-11.0)
[2021-12-13 18:32] LABS: ALBUMIN 2.7 G/DL (3.4-5.0); ANION GAP 11 (8-16); BLOOD UREA NITROGEN 27 MG/DL (7-18); BUN/CREATININE RATIO 10.1 (5.4-32.0); CALCIUM 9.6 MG/DL (8.5-10.1); CHLORIDE 104 MMOL/L (99-107); CREATININE 2.67 MG/DL (0.60-1.10); GLUCOSE 108 MG/DL (70-104); POTASSIUM 3.6 MMOL/L (3.5-5.1); SODIUM 139 MMOL/L (135-145); TOTAL CARBON DIOXIDE 23.6 MMOL/L (24-32); eGFR 24 ML/MIN
--- NOTE | 2021-12-13 18:35 | NUR ---
Problems reprioritized. Patient report given, questions answered & plan of care reviewed with MARIAM UMAÑA.
[2021-12-13] MEDS: HYDROcodone/acetaminophen 5mg/325mg tablet PO PRN (19:05)
[2021-12-13] MEDS: insulin glargine (Lantus) pen - multi-dose SQ SCH (20:55)
[2021-12-13] MEDS: polyethylene glycol 3350 17gm powd pack PO SCH (20:56)
[2021-12-13] MEDS: traZODone 50mg tablet PO SCH (20:57)
[2021-12-13] MEDS: tamsulosin 0.4mg capsule PO SCH (20:57)
[2021-12-13 22:00] VITALS: BP 106/54
[2021-12-14 06:22] LABS: CHOL/HDL RATIO 6.2 (0.00-4.99); CHOLESTEROL 142 MG/DL (0-200); HDL CHOLESTEROL 23 MG/DL (35-60); LDL CHOLESTEROL 59 MG/DL (50-100); TRIGLYCERIDES 314 MG/DL (20-135)
[2021-12-14 06:30] VITALS: BP 122/60
--- NOTE | 2021-12-14 06:30 | NUR ---
Patient in room ORTHO 4011. I have received report from joyce wills and had the opportunity to ask questions and assume patient care.
[2021-12-14] MEDS: carbidopa/levodopa 10/100mg tab PO SCH ×2 (08:12→19:51)
[2021-12-14] MEDS: HYDROcodone/acetaminophen 5mg/325mg tablet PO PRN ×2 (08:12→19:57)
[2021-12-14] MEDS: atorvastatin 20mg tablet PO SCH (08:12)
[2021-12-14] MEDS: amLODIPine 5mg tablet PO SCH (08:12)
[2021-12-14] MEDS: ferrous sulfate 325mg tablet PO SCH (08:13)
[2021-12-14] MEDS: pantoprazole 40mg Tablet.DR PO SCH (08:13)
[2021-12-14] MEDS: linagliptin 5mg tablet PO SCH (08:13)
[2021-12-14] MEDS: metoprolol tartrate 12.5mg (1/2 tablet) PO SCH ×2 (08:13→19:52)
[2021-12-14] MEDS: sodium chloride 0.45% 1,000 ML IV SCH ×2 (08:17→17:45)
[2021-12-14 10:00] VITALS: BP 120/50
[2021-12-14 12:20] LABS: CLARITY,URINE SLIGHTLY CLOUDY (Clear); GLUCOSE, URINE >=1000 mg/dl (Neg); KETONES,URINE NEGATIVE (Neg); LEUKOCYTE ESTERASE ,URINE LARGE (Neg); NITRITES, URINE NEGATIVE (Neg); OCCULT BLOOD,URINE MODERATE (Neg); PROTEIN,URINE 30 mg/dl (Neg); UROBILINOGEN,URINE 0.2 E.U/dL (0.2-1.0)
[2021-12-14 12:21] LABS: COLOR,URINE STRAW (Yellow); UA COLLECTION TYPE FOLEY CATH
[2021-12-14 12:34] LABS: WBC,URINE TNTC /HPF (0-4)
[2021-12-14 12:36] LABS: BACTERIA,URINE 1+ /HPF (Neg); MUCUS STRANDS NONE SEEN /LPF (Neg); SQUAMOUS EPITHELIAL CELL,UR NONE SEEN /LPF (FEW); WBC CLUMPS,URINE MODERATE /HPF (NEGATIVE)
[2021-12-14] MEDS: insulin Lispro (HumaLOG) vial - multi-dose SQ SCH ×2 (13:42→18:54)
[2021-12-14 15:28] VITALS: BP 111/51
[2021-12-14 17:00] VITALS: BP 125/55
[2021-12-14 17:16] VITALS: BP 120/50
--- NOTE | 2021-12-14 18:30 | NUR ---
Patient in room ORTHO 4011. I have received report from Tiffani UMAÑA and had the opportunity to ask questions and assume patient care. Addendum: 12/15/21 at 0441 by Tracey Oneill RN Amended: Links added.
--- NOTE | 2021-12-14 18:37 | NUR ---
Problems reprioritized. Patient report given, questions answered & plan of care reviewed with megan wills.
[2021-12-14 18:44] LABS: BASOPHILS # (AUTO) 0.1 X10'3 (0-0.2); EOSINOPHILS # (AUTO) 0.3 X10'3 (0-0.9); EOSINOPHILS % (AUTO) 3.9 % (0-6); HEMATOCRIT 26.5 % (42.0-52.0); HEMOGLOBIN 8.3 g/dl (14.0-17.9); LYMPHOCYTES # (AUTO) 1.2 X10'3 (1.1-4.8); LYMPHOCYTES % (AUTO) 17.2 % (21-51); MEAN CORPUSCULAR HEMOGLOBIN 24.1 PG (27.0-31.0); MEAN CORPUSCULAR HGB CONC 31.2 g/dL (33.0-36.5); MEAN CORPUSCULAR VOLUME 77.3 FL (78-98); MEAN PLATELET VOLUME 7.3 FL (7.4-10.4); MONOCYTES # (AUTO) 0.5 X10'3 (0-0.9); MONOCYTES % (AUTO) 6.2 % (2-12); NEUTROPHILS # (AUTO) 5.2 X10'3 (1.8-7.7); NEUTROPHILS % (AUTO) 71.7 % (42-75); PLATELET COUNT 341 X10'3 (140-440); RED BLOOD COUNT 3.43 X10'6 (4.70-6.10); WHITE BLOOD COUNT 7.2 X10'3 (4.5-11.0)
[2021-12-14 18:58] LABS: ALANINE AMINOTRANSFERASE 13 U/L (12-78); ALBUMIN 2.7 G/DL (3.4-5.0); ALBUMIN/GLOBULIN RATIO 0.6 (1.1-1.5); ALKALINE PHOSPHATASE 75 IU/L (46-116); ANION GAP 11 (8-16); ASPARTATE AMINO TRANSFERASE 14 U/L (10-37); BILIRUBIN,TOTAL 0.2 MG/DL (0.1-1.0); BLOOD UREA NITROGEN 27 MG/DL (7-18); BUN/CREATININE RATIO 10.3 (5.4-32.0); CALCIUM 9.5 MG/DL (8.5-10.1); CHLORIDE 105 MMOL/L (99-107); CREATININE 2.62 MG/DL (0.60-1.10); GLUCOSE 133 MG/DL (70-104); POTASSIUM 3.8 MMOL/L (3.5-5.1); SODIUM 140 MMOL/L (135-145); TOTAL CARBON DIOXIDE 24.1 MMOL/L (24-32); TOTAL PROTEIN 7.1 G/DL (6.4-8.2); eGFR 24 ML/MIN
[2021-12-14 19:00] LABS: PLATELET ESTIMATE NORMAL
[2021-12-14 19:01] LABS: ANISOCYTOSIS 3+; ELLIPTOCYTES FEW; MICROCYTOSIS 1+
[2021-12-14 19:02] LABS: HYPOCHROMASIA 1+
[2021-12-14] MEDS: traZODone 50mg tablet PO SCH (21:10)
[2021-12-14] MEDS: polyethylene glycol 3350 17gm powd pack PO SCH (21:10)
[2021-12-14] MEDS: tamsulosin 0.4mg capsule PO SCH (21:10)
[2021-12-14] MEDS: insulin glargine (Lantus) pen - multi-dose SQ SCH (21:19)
[2021-12-14 22:00] VITALS: BP 131/55
[2021-12-15] MEDS: sodium chloride 0.45% 1,000 ML IV SCH ×2 (02:46→13:46)
[2021-12-15 06:00] VITALS: BP 94/41
--- NOTE | 2021-12-15 06:11 | NUR ---
Problems reprioritized. Patient report given, questions answered & plan of care reviewed with Jacklyn UMAAÑ. Addendum: 12/15/21 at 0611 by Tracey Oneill RN Amended: Links added.
--- NOTE | 2021-12-15 06:45 | NUR ---
Patient in room ORTHO 4011. I have received report from LEEROY Webb and had the opportunity to ask questions and assume patient care.
[2021-12-15] MEDS: insulin Lispro (HumaLOG) vial - multi-dose SQ SCH ×2 (09:11→13:45)
[2021-12-15] MEDS: pantoprazole 40mg Tablet.DR PO SCH (09:13)
[2021-12-15] MEDS: ferrous sulfate 325mg tablet PO SCH (09:13)
[2021-12-15] MEDS: metoprolol tartrate 12.5mg (1/2 tablet) PO SCH (09:14)
[2021-12-15] MEDS: atorvastatin 20mg tablet PO SCH (09:14)
[2021-12-15] MEDS: amLODIPine 5mg tablet PO SCH (09:15)
[2021-12-15] MEDS: linagliptin 5mg tablet PO SCH (09:16)
[2021-12-15] MEDS: carbidopa/levodopa 10/100mg tab PO SCH (09:16)
[2021-12-15] MEDS: HYDROcodone/acetaminophen 5mg/325mg tablet PO PRN (09:34)
[2021-12-15 10:00] VITALS: BP 131/56
--- NOTE | 2021-12-15 12:27 | NUR ---
Spoke with Qi [phone] daughter in law of the patient. She said she wants to talk to case management about the discharge because the family does not feel like Ross should be living independently related to repeated falls. Paged case management and Denia said she will call Qi to discuss discharge planning.
--- NOTE | 2021-12-15 12:43 | NUR ---
Spoke to Denia in CM. She contacted the family and spoke with Salvador (Carlos's son) and explained the situation and gave them resources. The patient will be discharged from the hospital with HH. When it is time for discharge call Qi (daughter in law) and she will come pick him up.
[2021-12-15 14:00] VITALS: BP 106/43
[2021-12-15] MEDS ORDERED: LINA5TAB4 PO (16:47)
[2021-12-15] MEDS ORDERED: TRAZ-251 PO (16:47)
[2021-12-15] MEDS ORDERED: ATOR40TA PO (16:47)
[2021-12-15] MEDS ORDERED: LANTUS SQ (16:49)
[2021-12-15 19:23] VITALS: BP 129/52
--- NOTE | 2021-12-15 19:32 | NUR ---
Problems reprioritized. Patient report given, questions answered & plan of care reviewed with LEEROY Webb.
--- NOTE | 2021-12-15 20:00 | NUR ---
Family member here to pecan picker pt. Family member and pt have been educated not to take corrales catheter out, and how to use and drain leg bag. Both pt and family member were given d/c instructions to f/u with PCP in a week and referral for [employer] engineer from PCP. Family member notified nurse that pt has an appt in [place] with a urologist in a week. Both of pts IV were d/cd, both intact canulas. All belongings sent with pt. Assisted out in w/c with staff. Addendum: 12/15/21 at 2031 by Tracey Oneill RN Amended: Links added.
== END 2021-12-15 20:10 | disposition home health service (06) | DRG 698 ==
LOC: ER 21:58 → ED HOLD 12-07 02:48 → CICU 2S 12-07 07:20 → ORTHO 4S 12-08 17:33 → UNDODISIN 12-10 14:00 → ORTHO 4S 12-10 19:46
PROVIDERS: ADMIT Internal Medicine; ATTEND Internal Medicine
DX: T83.511A Infection and inflammatory reaction due to indwelling urethral catheter, initial encounter (principal); A41.9 Sepsis, unspecified organism; G93.41 Metabolic encephalopathy; N17.9 Acute kidney failure, unspecified; E46 Unspecified protein-calorie malnutrition; E87.2 Acidosis; N13.6 Pyonephrosis; N13.8 Other obstructive and reflux uropathy; E11.22 Type 2 diabetes mellitus with diabetic chronic kidney disease; J44.9 Chronic obstructive pulmonary disease, unspecified; E11.40 Type 2 diabetes mellitus with diabetic neuropathy, unspecified; E78.1 Pure hyperglyceridemia; E78.5 Hyperlipidemia, unspecified; E86.0 Dehydration; E87.5 Hyperkalemia; F02.80 Dementia in other diseases classified elsewhere, unspecified severity, without behavioral disturbance, psychotic disturbance, mood disturbance, and anxiety; F32.A Depression, unspecified; G89.29 Other chronic pain; M54.9 Dorsalgia, unspecified; I95.9 Hypotension, unspecified; R15.9 Full incontinence of feces; B37.9 Candidiasis, unspecified; R31.0 Gross hematuria; Y84.6 Urinary catheterization as the cause of abnormal reaction of the patient, or of later complication, without mention of misadventure at the time of the procedure; Z60.2 Problems related to living alone; D63.1 Anemia in chronic kidney disease; R29.6 Repeated falls; I12.9 Hypertensive chronic kidney disease with stage 1 through stage 4 chronic kidney disease, or unspecified chronic kidney disease; N18.9 Chronic kidney disease, unspecified; N40.1 Benign prostatic hyperplasia with lower urinary tract symptoms; R32 Unspecified urinary incontinence; R62.7 Adult failure to thrive; Z86.73 Personal history of transient ischemic attack (TIA), and cerebral infarction without residual deficits; Z87.11 Personal history of peptic ulcer disease; Z68.34 Body mass index [BMI] 34.0-34.9, adult; Z88.5 Allergy status to narcotic agent; Z79.899 Other long term (current) drug therapy; Z79.4 Long term (current) use of insulin; Y92.89 Other specified places as the place of occurrence of the external cause
CPT/HCPCS: 36415; 70450; 70551; 71045; 74176; 80048; 80053; 80061; 80305; 81001; 82550; 82553; 82948; 83036; 83605; 83735; 83874; 83880; 84145; 84443; 84484; 85007; 85008; 85025; 85379; 85610; 85730; 87040; 87077; 87081; 87088; 92508; 92616; 93005; 93306; 94640; 94760; 96360; 96361; 96365; 96375; 97110; 97116; 97161; 97530; 99291; G0378; J0696; J1644; J1815; J3490; J7030; J7070

== ENCOUNTER 2021-12-21 12:21 | Emergency (ER) | payer BC, MEDICAID ==
[~2021-12-21] VITALS: Ht 170.2 cm; Wt 100.0 kg
[~2021-12-21 12:21] MED LIST changes: +ACET-3080 PO; +AMLO10TA PO; -AMLO5TAB PO; +ASPI-101 PO; +ATOR40TA PO; -CITA10TA93 PO; -CYCL-1 PO; -DEXL60CA3 PO; -DONE-46 PO; +FENO145T25 PO; +FERR325T28 PO; +FLO0.4C PO; +HYDR-3965 PO; +IPRA3AMP31 IH; +LANTUS SQ; +LINA5TAB4 PO; -LISI40TA13 PO; +LOP25T PO; -LORA10TA7 PO; -METF-438 PO; -MULT-342 PO; +OMEP20CA16 PO; +PREG100C PO; -TRAM50TA2 PO; +TRAZ-251 PO; -VALS320T2 PO
[2021-12-21 12:27] VITALS: BP 115/58
--- NOTE | 2021-12-21 13:14 | NUR ---
ALLAN (STEP DAUGHTER FIRST CONTACT) [phone]
[2021-12-21 13:21] LABS: BASOPHILS # (AUTO) 0.1 X10'3 (0-0.2); BASOPHILS % (AUTO) 0.9 % (0-1); EOSINOPHILS # (AUTO) 0.2 X10'3 (0-0.9); EOSINOPHILS % (AUTO) 2.3 % (0-6); HEMATOCRIT 26.8 % (42.0-52.0); HEMOGLOBIN 8.5 g/dl (14.0-17.9); LYMPHOCYTES # (AUTO) 0.5 X10'3 (1.1-4.8); LYMPHOCYTES % (AUTO) 5.4 % (21-51); MEAN CORPUSCULAR HEMOGLOBIN 25.4 PG (27.0-31.0); MEAN CORPUSCULAR HGB CONC 31.8 g/dL (33.0-36.5); MEAN CORPUSCULAR VOLUME 79.7 FL (78-98); MEAN PLATELET VOLUME 7.7 FL (7.4-10.4); MONOCYTES # (AUTO) 0.7 X10'3 (0-0.9); MONOCYTES % (AUTO) 7.3 % (2-12); NEUTROPHILS # (AUTO) 7.6 X10'3 (1.8-7.7); NEUTROPHILS % (AUTO) 84.1 % (42-75); PLATELET COUNT 442 X10'3 (140-440); RED BLOOD COUNT 3.36 X10'6 (4.70-6.10); RED CELL DISTRIBUTION WIDTH 22.6 % (11.5-14.5)
[2021-12-21 13:37] LABS: ALANINE AMINOTRANSFERASE 11 U/L (12-78); ALBUMIN/GLOBULIN RATIO 0.8 (1.1-1.5); ALKALINE PHOSPHATASE 43 IU/L (46-116); ANION GAP 11 (8-16); ASPARTATE AMINO TRANSFERASE 11 U/L (10-37); BILIRUBIN,TOTAL 0.3 MG/DL (0.1-1.0); BLOOD UREA NITROGEN 43 MG/DL (7-18); BUN/CREATININE RATIO 10.8 (5.4-32.0); CALCIUM 9.1 MG/DL (8.5-10.1); CHLORIDE 105 MMOL/L (99-107); GLUCOSE 123 MG/DL (70-104); POTASSIUM 4.4 MMOL/L (3.5-5.1); SODIUM 140 MMOL/L (135-145); TOTAL CARBON DIOXIDE 24.5 MMOL/L (24-32); TOTAL PROTEIN 6.9 G/DL (6.4-8.2); eGFR 15 ML/MIN
[2021-12-21 13:39] LABS: CLARITY,URINE CLOUDY (Clear); COLOR,URINE YELLOW (Yellow); GLUCOSE, URINE >=1000 mg/dl (Neg); KETONES,URINE NEGATIVE (Neg); LEUKOCYTE ESTERASE ,URINE LARGE (Neg); NITRITES, URINE NEGATIVE (Neg); OCCULT BLOOD,URINE MODERATE (Neg); PROTEIN,URINE 30 mg/dl (Neg); UROBILINOGEN,URINE 0.2 E.U/dL (0.2-1.0)
[2021-12-21 13:41] LABS: UA COLLECTION TYPE FOLEY CATH
[2021-12-21 13:41] LABS: MAGNESIUM 1.8 MG/DL (1.5-2.4); PHOSPHORUS 3.5 MG/DL (2.3-4.5)
[2021-12-21 13:51] LABS: BACTERIA,URINE 1+ /HPF (Neg); SQUAMOUS EPITHELIAL CELL,UR NONE SEEN /LPF (FEW); WBC,URINE TNTC /HPF (0-4)
[2021-12-21 13:52] LABS: WBC CLUMPS,URINE MANY /HPF (NEGATIVE)
[2021-12-21 14:14] LABS: ANISOCYTOSIS 3+; MICROCYTOSIS 1+; PLATELET ESTIMATE INCREASED
== END 2021-12-21 18:26 | disposition home or self-care (01) ==
LOC: ER 12:22
DX: S00.93XA Contusion of unspecified part of head, initial encounter (principal); S00.91XA Abrasion of unspecified part of head, initial encounter; E11.649 Type 2 diabetes mellitus with hypoglycemia without coma; M25.559 Pain in unspecified hip; I10 Essential (primary) hypertension; J44.9 Chronic obstructive pulmonary disease, unspecified; G89.29 Other chronic pain; Z87.11 Personal history of peptic ulcer disease; Z87.440 Personal history of urinary (tract) infections; Z98.890 Other specified postprocedural states; Z88.5 Allergy status to narcotic agent; Z79.82 Long term (current) use of aspirin; Z79.4 Long term (current) use of insulin; Z79.899 Other long term (current) drug therapy; W19.XXXA Unspecified fall, initial encounter; Y93.89 Activity, other specified; Y92.89 Other specified places as the place of occurrence of the external cause; Y99.8 Other external cause status
CPT/HCPCS: 36415; 70450; 71045; 80053; 81001; 82948; 83735; 84100; 84484; 85008; 85025; 87088; 99285

== ENCOUNTER 2021-12-27 23:28 | Emergency (ER) | payer BC, MEDICAID ==
[~2021-12-27] VITALS: Ht 165.1 cm; Wt 89.0 kg
[2021-12-28 00:39] LABS: ALANINE AMINOTRANSFERASE 14 U/L (12-78); ALBUMIN 3.3 G/DL (3.4-5.0); ALBUMIN/GLOBULIN RATIO 0.7 (1.1-1.5); ALKALINE PHOSPHATASE 51 IU/L (46-116); ANION GAP 14 (8-16); ASPARTATE AMINO TRANSFERASE 12 U/L (10-37); BILIRUBIN,TOTAL 0.3 MG/DL (0.1-1.0); BLOOD UREA NITROGEN 93 MG/DL (7-18); BUN/CREATININE RATIO 13.4 (5.4-32.0); CALCIUM 9.5 MG/DL (8.5-10.1); CHLORIDE 99 MMOL/L (99-107); CREATININE 6.95 MG/DL (0.60-1.10); GLUCOSE 175 MG/DL (70-104); POTASSIUM 5.2 MMOL/L (3.5-5.1); SODIUM 137 MMOL/L (135-145); TOTAL CARBON DIOXIDE 24.1 MMOL/L (24-32); TOTAL PROTEIN 7.9 G/DL (6.4-8.2); eGFR 8 ML/MIN
[2021-12-28] MEDS ORDERED: normal saline 1000ml 1,000 ML IV ONE (00:45)
[2021-12-28 00:48] LABS: BASOPHILS # (AUTO) 0.1 X10'3 (0-0.2); EOSINOPHILS # (AUTO) 0.1 X10'3 (0-0.9); EOSINOPHILS % (AUTO) 1.8 % (0-6); HEMATOCRIT 28.3 % (42.0-52.0); HEMOGLOBIN 9.2 g/dl (14.0-17.9); LYMPHOCYTES # (AUTO) 0.5 X10'3 (1.1-4.8); LYMPHOCYTES % (AUTO) 6.2 % (21-51); MEAN CORPUSCULAR HEMOGLOBIN 26.2 PG (27.0-31.0); MEAN CORPUSCULAR HGB CONC 32.5 g/dL (33.0-36.5); MEAN CORPUSCULAR VOLUME 80.4 FL (78-98); MEAN PLATELET VOLUME 8.7 FL (7.4-10.4); MONOCYTES # (AUTO) 0.7 X10'3 (0-0.9); MONOCYTES % (AUTO) 8.5 % (2-12); NEUTROPHILS # (AUTO) 6.7 X10'3 (1.8-7.7); NEUTROPHILS % (AUTO) 82.5 % (42-75); PLATELET COUNT 379 X10'3 (140-440); RED BLOOD COUNT 3.51 X10'6 (4.70-6.10); RED CELL DISTRIBUTION WIDTH 21.6 % (11.5-14.5); WHITE BLOOD COUNT 8.1 X10'3 (4.5-11.0)
[2021-12-28 00:55] LABS: PLATELET ESTIMATE NORMAL
--- NOTE | 2021-12-28 00:58 | NUR ---
Patient to CT
[2021-12-28 01:04] LABS: ANISOCYTOSIS 3+; SPHEROCYTES 1+
[2021-12-28 02:55] LABS: CLARITY,URINE CLOUDY (Clear); COLOR,URINE YELLOW (Yellow); GLUCOSE, URINE 500 mg/dl (Neg); KETONES,URINE NEGATIVE (Neg); LEUKOCYTE ESTERASE ,URINE LARGE (Neg); NITRITES, URINE NEGATIVE (Neg); OCCULT BLOOD,URINE MODERATE (Neg); PROTEIN,URINE 100 mg/dl (Neg); UROBILINOGEN,URINE 0.2 E.U/dL (0.2-1.0)
[2021-12-28 02:57] LABS: UA COLLECTION TYPE FOLEY CATH
[2021-12-28 03:03] LABS: BACTERIA,URINE 2+ /HPF (Neg); SQUAMOUS EPITHELIAL CELL,UR NONE SEEN /LPF (FEW); WBC,URINE TNTC /HPF (0-4)
[2021-12-28 04:15] VITALS: BP 111/50
== END 2021-12-28 04:42 | disposition home or self-care (01) ==
LOC: ER 23:29
DX: R53.1 Weakness (principal); R42 Dizziness and giddiness; R53.81 Other malaise; I10 Essential (primary) hypertension; J44.9 Chronic obstructive pulmonary disease, unspecified; N40.0 Benign prostatic hyperplasia without lower urinary tract symptoms; E11.9 Type 2 diabetes mellitus without complications; G89.29 Other chronic pain; Z87.11 Personal history of peptic ulcer disease; Z87.440 Personal history of urinary (tract) infections; Z88.8 Allergy status to other drugs, medicaments and biological substances; Z79.82 Long term (current) use of aspirin; Z79.4 Long term (current) use of insulin; Z79.899 Other long term (current) drug therapy
CPT/HCPCS: 70450; 71045; 72125; 80053; 81001; 83735; 85008; 85025; 87077; 87088; 87186; 93005; 96360; 99285; J7030

== ENCOUNTER 2021-12-31 10:41 | Emergency (ER) | payer BC, MEDICAID ==
[~2021-12-31] VITALS: Ht 170.2 cm; Wt 100.0 kg
--- NOTE | 2021-12-31 11:15 | NUR ---
step daughter Qi called and gave her number for discharge if pt needs a ride home number is [phone]
--- NOTE | 2021-12-31 11:22 | NUR ---
ALLAN #[phone] WILL BE RIDE HOME IF HE GETS D/C
[2021-12-31 12:00] VITALS: BP 101/54
[2021-12-31] MEDS ORDERED: CARB1TAB34 PO (14:05)
== END 2021-12-31 14:27 | disposition home or self-care (01) ==
LOC: ER 10:41
DX: S00.81XA Abrasion of other part of head, initial encounter (principal); S09.90XA Unspecified injury of head, initial encounter; I10 Essential (primary) hypertension; J44.9 Chronic obstructive pulmonary disease, unspecified; N40.0 Benign prostatic hyperplasia without lower urinary tract symptoms; E11.9 Type 2 diabetes mellitus without complications; G89.29 Other chronic pain; Z87.11 Personal history of peptic ulcer disease; Z87.440 Personal history of urinary (tract) infections; Z79.82 Long term (current) use of aspirin; Z79.899 Other long term (current) drug therapy; Z79.4 Long term (current) use of insulin; W06.XXXA Fall from bed, initial encounter; Y93.89 Activity, other specified; Y92.89 Other specified places as the place of occurrence of the external cause; Y99.8 Other external cause status
CPT/HCPCS: 99283

== ENCOUNTER 2022-01-03 21:05 | Emergency (ER) | payer BC, MEDICAID ==
[~2022-01-03] VITALS: Ht 170.2 cm; Wt 100.0 kg
[~2022-01-03 21:05] MED LIST changes: +CARB1TAB34 PO
[2022-01-03 23:24] LABS: BASOPHILS # (AUTO) 0.1 X10'3 (0-0.2); BASOPHILS % (AUTO) 0.8 % (0-1); EOSINOPHILS # (AUTO) 0.5 X10'3 (0-0.9); EOSINOPHILS % (AUTO) 5.9 % (0-6); HEMATOCRIT 25.5 % (42.0-52.0); HEMOGLOBIN 8.4 g/dl (14.0-17.9); LYMPHOCYTES # (AUTO) 1.1 X10'3 (1.1-4.8); LYMPHOCYTES % (AUTO) 13.1 % (21-51); MEAN CORPUSCULAR HEMOGLOBIN 25.9 PG (27.0-31.0); MEAN CORPUSCULAR HGB CONC 32.8 g/dL (33.0-36.5); MEAN CORPUSCULAR VOLUME 79.1 FL (78-98); MEAN PLATELET VOLUME 8.2 FL (7.4-10.4); MONOCYTES # (AUTO) 0.7 X10'3 (0-0.9); MONOCYTES % (AUTO) 8.6 % (2-12); NEUTROPHILS # (AUTO) 5.8 X10'3 (1.8-7.7); NEUTROPHILS % (AUTO) 71.6 % (42-75); PLATELET COUNT 350 X10'3 (140-440); RED BLOOD COUNT 3.23 X10'6 (4.70-6.10); RED CELL DISTRIBUTION WIDTH 21.2 % (11.5-14.5); WHITE BLOOD COUNT 8.1 X10'3 (4.5-11.0)
[2022-01-03 23:39] LABS: ALANINE AMINOTRANSFERASE 12 U/L (12-78); ALBUMIN/GLOBULIN RATIO 0.7 (1.1-1.5); ALKALINE PHOSPHATASE 50 IU/L (46-116); ANION GAP 12 (8-16); ASPARTATE AMINO TRANSFERASE 12 U/L (10-37); BILIRUBIN,TOTAL 0.3 MG/DL (0.1-1.0); BLOOD UREA NITROGEN 106 MG/DL (7-18); BUN/CREATININE RATIO 16.2 (5.4-32.0); CALCIUM 9.2 MG/DL (8.5-10.1); CHLORIDE 102 MMOL/L (99-107); CREATININE 6.56 MG/DL (0.60-1.10); GLUCOSE 148 MG/DL (70-104); POTASSIUM 4.9 MMOL/L (3.5-5.1); SODIUM 138 MMOL/L (135-145); TOTAL CARBON DIOXIDE 23.9 MMOL/L (24-32); TOTAL PROTEIN 7.5 G/DL (6.4-8.2); eGFR 8 ML/MIN
[2022-01-04 00:21] LABS: PLATELET ESTIMATE NORMAL
[2022-01-04 00:22] LABS: ANISOCYTOSIS 3+; HYPOCHROMASIA 1+; SPHEROCYTES 1+
[2022-01-04 01:43] VITALS: BP 112/56
== END 2022-01-04 02:05 | disposition home or self-care (01) ==
LOC: ER 21:05
DX: R53.1 Weakness (principal); R51.9 Headache, unspecified; I12.9 Hypertensive chronic kidney disease with stage 1 through stage 4 chronic kidney disease, or unspecified chronic kidney disease; E11.22 Type 2 diabetes mellitus with diabetic chronic kidney disease; N18.9 Chronic kidney disease, unspecified; J44.9 Chronic obstructive pulmonary disease, unspecified; G89.29 Other chronic pain; Z87.11 Personal history of peptic ulcer disease; Z87.440 Personal history of urinary (tract) infections; Z98.890 Other specified postprocedural states; Z88.5 Allergy status to narcotic agent; Z79.4 Long term (current) use of insulin; Z79.82 Long term (current) use of aspirin; Z79.899 Other long term (current) drug therapy; W19.XXXA Unspecified fall, initial encounter; Y93.89 Activity, other specified; Y92.89 Other specified places as the place of occurrence of the external cause; Y99.8 Other external cause status
CPT/HCPCS: 36415; 70450; 80053; 85008; 85025; 99284

== ENCOUNTER 2022-01-11 12:26 | Emergency (ER) | payer BC, MEDICAID ==
[~2022-01-11] VITALS: Ht 170.2 cm; Wt 100.0 kg
--- NOTE | 2022-01-11 12:38 | NUR ---
Pt drank two juice boxes.
[2022-01-11 14:13] LABS: CLARITY,URINE SLIGHTLY CLOUDY (Clear); COLOR,URINE YELLOW (Yellow); GLUCOSE, URINE 500 mg/dl (Neg); KETONES,URINE NEGATIVE (Neg); LEUKOCYTE ESTERASE ,URINE MODERATE (Neg); NITRITES, URINE NEGATIVE (Neg); OCCULT BLOOD,URINE LARGE (Neg); PROTEIN,URINE 30 mg/dl (Neg); UROBILINOGEN,URINE 0.2 E.U/dL (0.2-1.0)
[2022-01-11 14:14] LABS: UA COLLECTION TYPE FOLEY CATH
[2022-01-11] MEDS ORDERED: dextrose 5%-lactated ringers 1,000 ML IV SCH (14:20)
[2022-01-11 14:30] LABS: SQUAMOUS EPITHELIAL CELL,UR NONE SEEN /LPF (FEW)
[2022-01-11 14:32] LABS: RBC,URINE 50-100 /HPF (0-2); WBC,URINE TNTC /HPF (0-4)
[2022-01-11 14:44] LABS: BACTERIA,URINE 4+ /HPF (Neg)
[2022-01-11 15:19] LABS: BASOPHILS % (AUTO) 0.4 % (0-1); EOSINOPHILS % (AUTO) 0.3 % (0-6); HEMATOCRIT 28.5 % (42.0-52.0); HEMOGLOBIN 9.1 g/dl (14.0-17.9); LYMPHOCYTES # (AUTO) 0.8 X10'3 (1.1-4.8); LYMPHOCYTES % (AUTO) 7.7 % (21-51); MEAN CORPUSCULAR HEMOGLOBIN 25.8 PG (27.0-31.0); MEAN CORPUSCULAR VOLUME 80.6 FL (78-98); MEAN PLATELET VOLUME 8.4 FL (7.4-10.4); MONOCYTES # (AUTO) 0.4 X10'3 (0-0.9); MONOCYTES % (AUTO) 3.6 % (2-12); NEUTROPHILS # (AUTO) 8.7 X10'3 (1.8-7.7); PLATELET COUNT 312 X10'3 (140-440); RED BLOOD COUNT 3.53 X10'6 (4.70-6.10); RED CELL DISTRIBUTION WIDTH 21.1 % (11.5-14.5); WHITE BLOOD COUNT 9.9 X10'3 (4.5-11.0)
[2022-01-11 15:45] LABS: ALANINE AMINOTRANSFERASE 12 U/L (12-78); ALBUMIN 3.3 G/DL (3.4-5.0); ALBUMIN/GLOBULIN RATIO 0.8 (1.1-1.5); ALKALINE PHOSPHATASE 33 IU/L (46-116); ANION GAP 10 (8-16); ASPARTATE AMINO TRANSFERASE 19 U/L (10-37); BILIRUBIN,TOTAL 0.3 MG/DL (0.1-1.0); BLOOD UREA NITROGEN 84 MG/DL (7-18); BUN/CREATININE RATIO 14.6 (5.4-32.0); CALCIUM 9.6 MG/DL (8.5-10.1); CHLORIDE 104 MMOL/L (99-107); CREATININE 5.77 MG/DL (0.60-1.10); GLUCOSE 94 MG/DL (70-104); POTASSIUM 4.4 MMOL/L (3.5-5.1); SODIUM 138 MMOL/L (135-145); TOTAL CARBON DIOXIDE 24.2 MMOL/L (24-32); TOTAL PROTEIN 7.7 G/DL (6.4-8.2); eGFR 10 ML/MIN
[2022-01-11 15:48] LABS: CREATINE KINASE 41 U/L (39-308)
[2022-01-11 15:54] LABS: PLATELET ESTIMATE NORMAL
[2022-01-11 15:55] LABS: ANISOCYTOSIS 3+; ELLIPTOCYTES FEW; TEAR DROP CELLS FEW
[2022-01-11 16:03] LABS: LACTIC SEPSIS 0.9 MMOL/L (0.4-2.0)
[2022-01-11 16:25] VITALS: BP 129/62
== END 2022-01-11 18:12 | disposition home or self-care (01) ==
LOC: ER 12:27
DX: E11.649 Type 2 diabetes mellitus with hypoglycemia without coma (principal); R45.1 Restlessness and agitation; I12.9 Hypertensive chronic kidney disease with stage 1 through stage 4 chronic kidney disease, or unspecified chronic kidney disease; E11.22 Type 2 diabetes mellitus with diabetic chronic kidney disease; N18.9 Chronic kidney disease, unspecified; J44.9 Chronic obstructive pulmonary disease, unspecified; N40.0 Benign prostatic hyperplasia without lower urinary tract symptoms; G89.29 Other chronic pain; Z86.73 Personal history of transient ischemic attack (TIA), and cerebral infarction without residual deficits; Z87.11 Personal history of peptic ulcer disease; Z88.8 Allergy status to other drugs, medicaments and biological substances; Z79.82 Long term (current) use of aspirin; Z79.899 Other long term (current) drug therapy
CPT/HCPCS: 36415; 70450; 80053; 81001; 82140; 82550; 82948; 83605; 84484; 85008; 85025; 87040; 87077; 87088; 87186; 99284; J7042; J7121

== ENCOUNTER 2022-01-20 13:51 | Emergency (ER) | payer BC, MEDICAID ==
[~2022-01-20] VITALS: Ht 170.2 cm; Wt 72.7 kg
[2022-01-20] MEDS ORDERED: normal saline 1000ML IV soln IVB ONE (14:15)
[2022-01-20 14:45] LABS: BASOPHILS % (AUTO) 0.6 % (0-1); EOSINOPHILS # (AUTO) 0.1 X10'3 (0-0.9); EOSINOPHILS % (AUTO) 1.1 % (0-6); HEMATOCRIT 26.9 % (42.0-52.0); HEMOGLOBIN 8.6 g/dl (14.0-17.9); LYMPHOCYTES # (AUTO) 0.6 X10'3 (1.1-4.8); LYMPHOCYTES % (AUTO) 8.6 % (21-51); MEAN CORPUSCULAR HEMOGLOBIN 24.9 PG (27.0-31.0); MEAN CORPUSCULAR HGB CONC 31.9 g/dL (33.0-36.5); MEAN CORPUSCULAR VOLUME 78.2 FL (78-98); MEAN PLATELET VOLUME 8.1 FL (7.4-10.4); MONOCYTES # (AUTO) 0.4 X10'3 (0-0.9); MONOCYTES % (AUTO) 5.4 % (2-12); NEUTROPHILS # (AUTO) 5.9 X10'3 (1.8-7.7); NEUTROPHILS % (AUTO) 84.3 % (42-75); PLATELET COUNT 388 X10'3 (140-440); RED BLOOD COUNT 3.44 X10'6 (4.70-6.10); RED CELL DISTRIBUTION WIDTH 21.4 % (11.5-14.5); WHITE BLOOD COUNT 7.1 X10'3 (4.5-11.0)
[2022-01-20 14:51] LABS: CLARITY,URINE CLOUDY (Clear); COLOR,URINE YELLOW (Yellow); GLUCOSE, URINE >=1000 mg/dl (Neg); KETONES,URINE NEGATIVE (Neg); LEUKOCYTE ESTERASE ,URINE MODERATE (Neg); NITRITES, URINE NEGATIVE (Neg); OCCULT BLOOD,URINE MODERATE (Neg); PROTEIN,URINE 30 mg/dl (Neg); UROBILINOGEN,URINE 0.2 E.U/dL (0.2-1.0)
[2022-01-20 14:51] LABS: LIPASE 795 U/L (73-393)
[2022-01-20 14:54] LABS: UA COLLECTION TYPE STRAIGHT CATH
[2022-01-20 14:56] LABS: RBC,URINE 50-100 /HPF (0-2); WBC,URINE TNTC /HPF (0-4)
[2022-01-20 14:57] LABS: BACTERIA,URINE 1+ /HPF (Neg); COARSE GRANULAR CAST 0-3 /LPF (NEGATIVE); SQUAMOUS EPITHELIAL CELL,UR FEW /LPF (FEW); WBC CLUMPS,URINE FEW /HPF (NEGATIVE)
[2022-01-20 15:02] LABS: PLATELET ESTIMATE NORMAL
[2022-01-20 15:03] LABS: ANISOCYTOSIS 3+; BURR CELLS FEW; ELLIPTOCYTES FEW; MICROCYTOSIS 1+
[2022-01-20 15:09] VITALS: BP 105/42
[2022-01-20 15:27] LABS: ALANINE AMINOTRANSFERASE 7 U/L (12-78); ALBUMIN 3.2 G/DL (3.4-5.0); ALBUMIN/GLOBULIN RATIO 0.7 (1.1-1.5); ALKALINE PHOSPHATASE 29 IU/L (46-116); ANION GAP 13 (8-16); ASPARTATE AMINO TRANSFERASE 14 U/L (10-37); BILIRUBIN,TOTAL 0.2 MG/DL (0.1-1.0); BLOOD UREA NITROGEN 64 MG/DL (7-18); BUN/CREATININE RATIO 12.1 (5.4-32.0); CALCIUM 9.6 MG/DL (8.5-10.1); CHLORIDE 104 MMOL/L (99-107); CREATININE 5.31 MG/DL (0.60-1.10); GLUCOSE 87 MG/DL (70-104); POTASSIUM 4.4 MMOL/L (3.5-5.1); SODIUM 140 MMOL/L (135-145); TOTAL CARBON DIOXIDE 23.2 MMOL/L (24-32); TOTAL PROTEIN 7.5 G/DL (6.4-8.2); eGFR 11 ML/MIN
[2022-01-20] MEDS ORDERED: SULF1TAB45 PO (16:22)
== END 2022-01-20 17:24 | disposition home or self-care (01) ==
LOC: ER 13:52
DX: N39.0 Urinary tract infection, site not specified (principal); F03.90 Unspecified dementia, unspecified severity, without behavioral disturbance, psychotic disturbance, mood disturbance, and anxiety; R31.9 Hematuria, unspecified; J44.9 Chronic obstructive pulmonary disease, unspecified; I12.9 Hypertensive chronic kidney disease with stage 1 through stage 4 chronic kidney disease, or unspecified chronic kidney disease; E11.22 Type 2 diabetes mellitus with diabetic chronic kidney disease; N18.9 Chronic kidney disease, unspecified; G89.29 Other chronic pain; Z86.73 Personal history of transient ischemic attack (TIA), and cerebral infarction without residual deficits; Z87.11 Personal history of peptic ulcer disease; Z87.440 Personal history of urinary (tract) infections; Z98.890 Other specified postprocedural states; Z88.5 Allergy status to narcotic agent; Z79.82 Long term (current) use of aspirin; Z79.4 Long term (current) use of insulin; Z79.2 Long term (current) use of antibiotics; Z79.899 Other long term (current) drug therapy
CPT/HCPCS: 36415; 80053; 81001; 82948; 83690; 85008; 85025; 87088; 96360; 99284; J7030